=== PATIENT | male | born 1980 | race Caucasian/White ===

== ENCOUNTER 2017-03-14 13:07 | Emergency (ER) | payer OTHER ==
[2017-03-14 13:13] VITALS: TEMP 98.1
[2017-03-14] MEDS ORDERED: HYDROCODONE/APAP 5/325 TAB PO ONE (13:47)
[2017-03-14] MEDS ORDERED: IBUPROFEN 600 MG TAB PO ONE (13:47)
[2017-03-14] MEDS ORDERED: ONDANSETRON 4 MG/2 ML VIAL IVP ONE (14:23)
[2017-03-14] MEDS ORDERED: HYDROmorphONE/DILAUDID 1 MG/ML INJ IVP ONE (14:23)
--- NOTE | 2017-03-14 14:38 | EDPHY ---
H & P Stated Complaint: [place] pop in L shoulder while arm wrestling HPI/ROS: Chief complaint: Left arm injury History of present illness: This is a 36-year-old male who presents to the emergency department for left arm injury. Patient was arm wrestling a friend when he felt a pop in his left upper arm. Since then he has had pain. He has difficulty moving the arm. He denies other associated signs or symptoms including no other trauma. No abnormal coolness or paresthesias in the arm. Review of systems: A 10 point review of systems was obtained and other than described above was negative - Personal History Current Tetanus Diphtheria and Acellular Pertussis (TDAP): Unsure - Medical/Surgical History Other PMH: healthy - Social History Smoking Status: Never smoked - Physical Exam Exam: General: Alert, nontoxic Skin: No open wounds to the left upper extremity Musculoskeletal: There is edema to the mid aspect of the left upper arm. He is having difficulty moving the left arm in the shoulder and elbow. He can move the wrist and fingers well. Vascular: Radial pulses 2+. Neurologic: Sensation intact throughout the left arm. Constitutional: Initial Vital Signs Temperature (C) 36.7 C 03/14/17 13:08 Heart Rate 104 H 03/14/17 13:08 Respiratory Rate 18 03/14/17 13:08 Blood Pressure 115/76 03/14/17 13:08 O2 Sat (%) 98 03/14/17 13:08 O2 Delivery Mode Room Air Allergies/Adverse Reactions: No Known Allergies Allergy (Unverified 03/14/17 13:13) Home Medications: Medication Instructions Recorded Hydrocodone/APAP 5/325 [Kensett 1 tab PO Q6H #20 tab 03/14/17 5/325 (*)] Medical Decision Making - Diagnostics Imaging Results: Imaging Impressions Humerus X-Ray 03/14/17 13:29 Impression: Acute angulated, displaced, and minimally rotated midshaft humeral fracture with dominant segmental fracture fragment. Imaging: I viewed and interpreted images myself Procedures: Procedure: Splint placement. A co Adaptic splint was applied. After application of the splint I returned and re-examined the patient. The splint was adequately immobilizing the joint and distal to the splint the patient's circulation and sensation was intact. ED Course/Re-evaluation: Patient seen under the supervision of my secondary supervising physician Dr. Adam Rosales. Patient presents to the emergency department for left upper arm pain after arm wrestling. His arm is neurovascularly intact. X-ray confirms a fracture. I have consulted with on-call orthopedics, Dr. Rodriguez who has reviewed the x-rays. He is comfortable with patient being placed in a coaptation splint and following up in clinic next week. Home care is discussed with the patient. Return precautions are given. Patient voiced understanding and agreement with plan. geology scientist was used to facilitate communication with patient. Differential Diagnosis: Included but not limited to sprain or strain, biceps tendon rupture, fracture, joint dislocation - Data Points Medications Given: Discontinued Medications Hydrocodone Bitart/Acetaminophen ([place] 5/325) 1 tab PO EDNOW ONE Stop: 03/14/17 13:48 Last Admin: 03/14/17 13:52 Dose: Not Given Hydromorphone HCl (Dilaudid) 1 mg IVP EDNOW ONE Stop: 03/14/17 14:24 Last Admin: 03/14/17 14:47 Dose: 1 mg Ibuprofen (Motrin) 600 mg PO EDNOW ONE Stop: 03/14/17 13:48 Last Admin: 03/14/17 13:53 Dose: Not Given Ondansetron HCl (Zofran) 4 mg IVP EDNOW ONE Stop: 03/14/17 14:24 Last Admin: 03/14/17 14:47 Dose: 4 mg Departure - Departure Disposition: Home, Routine, Self-Care Clinical Impression: Left humeral fracture Qualifiers: Encounter type: initial encounter Humerus Location: shaft Fracture type: closed Fracture morphology: comminuted Fracture alignment: displaced Qualified Code(s): S42.352A - Displaced comminuted fracture of shaft of humerus, left arm , initial encounter for closed fracture Condition: Good Instructions: Arm Fracture in Adults (ED), Splint Care (ED) Additional Instructions: Follow-up with Orthopedics next week for recheck In regards to pain control see the following: Use ibuprofen [600] mg [3] times a day for the next 2-3 days for pain In addition You have been prescribed [Kensett] for pain. [Kensett] contains Tylenol, do not take extra Tylenol/acetaminophen/Apap with it. It is sedating. If symptoms worsen or new symptoms develop return to the emergency room for recheck - Allen grace wesly de seguimiento con el Ortopedico la proxima semana. - Con relacion a control de dolor: - Use Ibuprofen 600 mg 3 veces al keven por los proximos 2-3- navarro para el dolor. - En adicion puede buster Kensett (recetado) para dolor. Kensett contiene Tylenol, no tome mas acetominophen/tylenol/apap . Es un sedativo. - Si los sintomas empeoran o desarrolla nuebos regrese a la yolanda de emergencia para grace nueva evaluacion. Referrals: David Rodriguez MD [Medical Doctor] - As per Instructions Prescriptions: Hydrocodone/APAP 5/325 [K[place] 5/325 (*)] 1 tab PO Q6H #20 tab Print Language: Tristanian
[2017-03-14 15:18] VITALS: BP 125/68; PULSE 81; RESP 18; O2SAT 96
== END 2017-03-14 15:26 | disposition home or self-care (01) ==
DX: S42.352A Displaced comminuted fracture of shaft of humerus, left arm, initial encounter for closed fracture (principal); X58.XXXA Exposure to other specified factors, initial encounter; Y99.8 Other external cause status; Y93.72 Activity, wrestling
CPT/HCPCS: 96374; J1170; J2405